=== PATIENT | male | born 1960 | race Caucasian/White ===

== ENCOUNTER → 2024-03-28 11:43 | Outpatient (REF) | payer OTHER, SELFPAY ==
[2024-03-28 12:54] LABS: ALT (SGPT) 26 U/L (0-50); AST (SGOT) 26 U/L (17-59); Albumin 4.8 g/dl (3.5-5.0); Alkaline Phosphatase 71 U/L (38-126); Blood Urea Nitrogen 24 mg/dl (9-20); Calcium 10.9 mg/dl (8.4-10.2); Carbon Dioxide 23 mmol/L (22-30); Chloride 111 mmol/L (98-107); Glucose 74 mg/dl (70-99); Potassium 5.4 mmol/L (3.5-5.1); Sodium 146 mmol/L (135-145); Total Bilirubin 0.6 mg/dl (0.2-1.3); Total Protein 7.2 g/dl (6.3-8.2); eGFR > 60.00
[2024-03-28 12:56] LABS: Prealbumin (Transthyretin) 29.4 mg/dl (17.6-36.0)
== END ==
LOC: OLABBH 11:43
PROVIDERS: ATTENDING PHYSICIAN Family Medicine
DX: D45 Polycythemia vera (principal); R77.0 Abnormality of albumin
CPT/HCPCS: 80053; 84134